=== PATIENT | male | born 1975 | race Caucasian/White ===

== ENCOUNTER 2024-11-19 05:58 | Emergency (ER) | payer BC ==
[~2024-11-19] VITALS: Ht 188 cm; Wt 104.3 kg
[2024-11-19] MEDS ORDERED: EPINEPHRINE (1:1000) 1 MG/ML AMPUL ONE (06:11)
[2024-11-19] MEDS ORDERED: diphenhydrAMINE HCL 50 MG/ML VIAL ONE (06:18)
[2024-11-19] MEDS ORDERED: methylPREDNISolone SOD SUCC 125 MG/2ML VIAL ONE (06:18)
[2024-11-19] MEDS ORDERED: FAMOTIDINE/PF INJ 20 MG/2 ML VIAL IV ONE (06:19)
[2024-11-19] MEDS: diphenhydrAMINE HCL 50 MG/ML VIAL IV ONE (06:27)
[2024-11-19] MEDS: EPINEPHRINE (1:1000) 1 MG/ML AMPUL SUBCUT ONE (06:27)
[2024-11-19] MEDS: methylPREDNISolone SOD SUCC 125 MG/2ML VIAL IV ONE (06:27)
[2024-11-19] MEDS: IV NS 0.9% 1,000 ML BAG IV ONE (06:27)
[2024-11-19] MEDS: FAMOTIDINE/PF INJ 20 MG/2 ML VIAL IV ONE (06:27)
[2024-11-19 06:37] LABS: BASOPHILS % (AUTO) 0.4 % (0.0-2.0); EOSINOPHILS # (AUTO) 0.1 K/uL (0.0-0.7); EOSINOPHILS % (AUTO) 1.5 % (0.0-6.0); HEMATOCRIT 50 % (39-51); HEMOGLOBIN 17.2 g/dL (13.5-17.5); MEAN CORPUSCULAR HEMOGLOBIN 32 PG (26.0-33.0); MEAN CORPUSCULAR HGB CONC 35 g/dl (31.0-36.0); MEAN CORPUSCULAR VOLUME 92 fL (80-96); MONOCYTES # (AUTO) 0.8 K/uL (0.1-1.30); MONOCYTES % (AUTO) 12.5 % (2.0-12.0); NEUTROPHILS # (AUTO) 3.5 K/uL (1.8-8.9); NEUTROPHILS % (AUTO) 54.6 % (43.0-81.0); PLATELET COUNT (AUTO) 234 K/uL (150-450); RED BLOOD CELL COUNT(AUTO) 5.37 MIL/uL (4.5-6.0); RED CELL DISTRIBUTION WIDTH 13.2 % (11.5-15.0); WHITE BLOOD COUNT (AUTO) 6.4 K/uL (4.3-11.0)
[2024-11-19 06:43] LABS: CALCIUM, SERUM 9.1 mg/dL (8.5-10.1); CREATININE 0.9 mg/dL (0.6-1.3); POTASSIUM 3.9 mmol/L (3.5-5.1)
[2024-11-19] MEDS ORDERED: HYDR-500 PO (08:46)
[2024-11-19] MEDS ORDERED: EPIN0.3P3 IM (08:46)
[2024-11-19] MEDS ORDERED: PRED20TA PO (08:46)
[2024-11-19 09:00] VITALS: BP 125/77; TEMP 98.1; O2SAT 98
== END 2024-11-19 09:00 | disposition home or self-care (01) ==
LOC: ER 05:58
DX: T78.2XXA Anaphylactic shock, unspecified, initial encounter (principal); L50.1 Idiopathic urticaria; R22.0 Localized swelling, mass and lump, head; Z79.52 Long term (current) use of systemic steroids; Z88.0 Allergy status to penicillin; Y92.89 Other specified places as the place of occurrence of the external cause
CPT/HCPCS: 99284; 96374; 96375; 96361; 93005; 85025; 80048; 36415; 96372; J1200; J0171; J3490; J2919; J7030